=== PATIENT | male | born 1970 | race Caucasian/White ===

== ENCOUNTER 2017-06-20 16:43 | Emergency (ER) | payer OTHER, BC ==
[2017-06-20 16:57] VITALS: BP 153/93; PULSE 60; TEMP 98.1; BMI 26.6
[2017-06-20] MEDS ORDERED: IBUPROFEN 400 MG TABLET (FP) PO ONE ×2 (17:46→18:10)
--- NOTE | 2017-06-20 17:55 | PDOC ---
History of Present Illness - General Chief Complaint: Injury Stated Complaint: INJURY Time Seen by Provider: 06/20/17 17:41 History Source: Patient Exam Limitations: No Limitations - History of Present Illness Initial Comments: 06/20/17 17:44 Primary, while on duty jumped from rag and hyperflexed his right foot and toes. Complaints of pain primarily in the second digit at MTP 06/20/17 17:55 06/20/17 17:56 Occurred: reports: just prior to arrival, this afternoon Severity: reports: mild, moderate Pain Location: reports: lower extremity (right foot) Method of Injury: Yes: fall Modifying Factors: improves with: cold therapy Loss of Consciousness: no loss of consciousness Past History - Travel Traveled outside of the country in the last 30 days: No Close contact w/someone who was outside of country & ill: No - Past Medical History Allergies/Adverse Reactions: Allergies Allergy/AdvReac Type Severity Reaction Status Date / Time No Known Allergies Allergy Verified 06/20/17 16:54 Home Medications: Ambulatory Orders Acetaminophen [Tylenol] 325 mg PO PRN PRN 11/18/15 Ibuprofen [Motrin] 800 mg PO TID #30 tablet 11/18/15 Methocarbamol [Robaxin -] 500 mg PO TID #30 tablet 11/18/15 Other medical history: denies medical hx - Family Disease History Family Disease History: Heart Disease: Father (hypertension) - Immunization History Immunization Up to Date: Yes - Psycho/Social/Smoking Cessation Hx Anxiety: No Suicidal Ideation: No Smoking History: Never smoked Have you smoked in the past 12 months: No Hx Alcohol Use: No Drug/Substance Use Hx: No Substance Use Type: None Trauma Specific PMHX - Complaint Specific PMHX Back Injury: No Neck Injury: No Review of Systems - Review of Systems Able to Perform ROS?: Yes Is the patient limited Yakut proficient: Yes Constitutional: Yes: Symptoms Reported, See HPI, Malaise HEENTM: No: Symptoms Reported Respiratory: No: Symptoms reported Musculoskeletal: Yes: Symptoms Reported, See HPI, Joint Pain, Joint Swelling ( to 2nde MTP) Neurological: Yes: See HPI. No: Symptoms reported *Physical Exam - Vital Signs Last Vital Signs Temp Pulse Resp BP Pulse Ox 98.1 F 60 16 153/93 99 06/20/17 16:54 06/20/17 16:54 06/20/17 16:54 06/20/17 16:54 06/20/17 16:54 - Physical Exam General Appearance: Yes: Nourished, Appropriately Dressed, Apparent Distress HEENT: positive: [place], Normal ENT Inspection, TMs Normal, Pharynx Normal Neck: positive: Supple. negative: Tender Respiratory/Chest: positive: Normal Breath Sounds Musculoskeletal: positive: Normal Inspection Extremity: positive: Normal Capillary Refill, Normal Inspection, Tender (with swelling to 2nd MTP/ ). 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 We will provide Jadon wrap, and follow-up with *DC/Admit/Observation/Transfer Diagnosis at time of Disposition: Right foot sprain Qualifiers: Encounter type: initial encounter Qualified Code(s): S93.601A - Unspecified sprain of right foot, initial encounter - Discharge Dispostion Disposition: HOME Condition at time of disposition: Stable Admit: No - Referrals Referrals: Janet Leija [Primary Care Provider] - Bhanu Sun MD [Staff Physician] - - Patient Instructions Printed Discharge Instructions: DI for Foot Sprain Additional Instructions: Rest, ice to area on and off for 15 minutes 4-6 times a day Avoid heavy lifting or exercise until pain and swelling is resolved or until further directed Keep area highly elevated to reduce swelling Use splints/Jadon wrap as directed Followup with orthopedist in one to 2 days if not improving, if significantly improved may wait one week for followup with orthopedist May use ibuprofen 2-200 mg tablets every 6 hours as needed for pain - Post Discharge Activity Work/School Note: Back to Work
== END 2017-06-20 18:34 | disposition home or self-care (01) ==
LOC: JERFT 16:43 → JER 16:43 → JERFT 18:34
DX: S93.491A Sprain of other ligament of right ankle, initial encounter (principal); V86.91XA Unspecified occupant of ambulance or fire engine injured in nontraffic accident, initial encounter; Y93.39 Activity, other involving climbing, rappelling and jumping off; Y92.89 Other specified places as the place of occurrence of the external cause; Y99.0 Civilian activity done for income or pay
CPT/HCPCS: 73630-TC-RT; 99281-25

== ENCOUNTER 2017-12-04 11:06 | Emergency (ER) | payer OTHER, BC ==
[2017-12-04 11:13] VITALS: BP 146/98; PULSE 64; TEMP 98.2; BMI 26.6
--- NOTE | 2017-12-04 12:49 | PDOC ---
History of Present Illness - General Chief Complaint: Injury Stated Complaint: LOWER BACK PAIN/JOB INJURY Time Seen by Provider: 12/04/17 12:22 History Source: Patient Exam Limitations: No Limitations - History of Present Illness Initial Comments: 12/04/17 12:41 Patient is a 47-year-old male with past medical history of herniated L4-L5 disc who presents to the emergency department today complaining of left buttock pain. 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 He states that he carried it up a couple flights of steps. Afterwards he noticed that he had pain and numbness to his left butt cheek. Denies bladder or bowel incontinence, saddle anesthesia, fall, blunt force trauma, fever and chills. Past History - Travel Traveled outside of the country in the last 30 days: No Close contact w/someone who was outside of country & ill: No - Past Medical History Allergies/Adverse Reactions: Allergies Allergy/AdvReac Type Severity Reaction Status Date / Time No Known Allergies Allergy Verified 12/04/17 11:13 Home Medications: Ambulatory Orders Cyclobenzaprine HCl [Flexeril -] 10 mg PO HS #7 tablet 12/04/17 Methylprednisolone [Medrol Dose Carlos] 4 mg PO ASDIR #21 tablet 12/04/17 COPD: No - Family Disease History Family Disease History: Heart Disease: Father (hypertension) - Immunization History Immunization Up to Date: Yes - Suicide/Smoking/Psychosocial Hx Smoking History: Never smoked Have you smoked in the past 12 months: No Hx Alcohol Use: No Drug/Substance Use Hx: No Substance Use Type: None Review of Systems - Review of Systems Able to Perform ROS?: Yes Comments:: 12/04/17 12:42 CONSTITUTIONAL: Absent: fever, chills, diaphoresis, generalized weakness, malaise, loss of appetite HEENT: Absent: rhinorrhea, nasal congestion, throat pain, throat swelling, difficulty swallowing, mouth swelling, ear pain, eye pain, visual Changes CARDIOVASCULAR: Absent: chest pain, loss of consciousness, palpitations, irregular heart rate, peripheral edema RESPIRATORY: Absent: cough, shortness of breath, dyspnea with exertion, orthopnea, wheezing, stridor, hemoptysis GASTROINTESTINAL: Absent: abdominal pain, abdominal distension, nausea, vomiting, diarrhea, constipation, melena, hematochezia GENITOURINARY: Absent: dysuria, frequency, urgency, hesitancy, hematuria, flank pain, genital pain MUSCULOSKELETAL: Present: L buttock pain. Absent: myalgia, arthralgia, joint swelling SKIN: Absent: rash, itching, pallor HEMATOLOGIC/IMMUNOLOGIC: Absent: easy bleeding, easy bruising, lymphadenopathy, frequent infections ENDOCRINE: Absent: unexplained weight gain, unexplained weight loss, heat intolerance, cold intolerance NEUROLOGIC: Absent: headache, focal weakness or paresthesias, dizziness, unsteady gait, seizure, mental status changes, bladder or bowel incontinence PSYCHIATRIC: Absent: anxiety, depression, suicidal or homicidal ideation, hallucinations. Is the patient limited Vincentian proficient: No *Physical Exam - Vital Signs Last Vital Signs Temp Pulse Resp BP Pulse Ox 98.2 F 64 20 146/98 98 12/04/17 11:10 12/04/17 11:10 12/04/17 11:10 12/04/17 11:10 12/04/17 11:10 - Physical Exam Comments: 12/04/17 12:43 GENERAL: Well developed, well nourished. Awake and alert. No acute distress. HEENT: Normocephalic, atraumatic. PERRLA, EOMI. No conjunctival pallor. Sclera are non- icteric. Moist mucous membranes. Oropharynx is clear. NECK: Supple. Full ROM. No JVD. Carotid pulses 2+ and symmetric, without bruits. No thyromegaly. No lymphadenopathy. CARDIOVASCULAR: Regular rate and rhythm. No murmurs, rubs, or gallops. Distal pulses are 2+ and symmetric. PULMONARY: No evidence of respiratory distress. Lungs clear to auscultation bilaterally. No wheezing, rales or rhonchi. ABDOMINAL: Soft. Non-tender. Non-distended. No rebound or guarding. No organomegaly. Normoactive bowel sounds. MUSCULOSKELETAL Normal range of motion at all joints. No bony deformities. No CVA tenderness. (- ) flip test b/l. TTP of the L buttock, L paraspinous muscle at the level of L 5. No midline vertebral tenderness. EXTREMITIES: No cyanosis. No clubbing. No edema. No calf tenderness. SKIN: Warm and dry. Normal capillary refill. No rashes. No jaundice. NEUROLOGICAL: Alert, awake, appropriate. Cranial nerves 2-12 intact. No deficits to light touch and temperature in face, upper extremities and lower extremities. No motor deficits in the in face, upper extremities and lower extremities. Normoreflexic in the upper and lower extremities. Normal speech. Toes are down- going bilaterally. Gait is normal without ataxia. PSYCHIATRIC: Cooperative. Good eye contact. Appropriate mood and affect. Medical Decision Making - Medical Decision Making 12/04/17 12:44 Patient is a 47-year-old male with past medical history of herniated L4-L5 disc she presents to the emergency department today with an acute flare of sciatica. We will treat with ibuprofen at this time. Patient was given a prescription for a Medrol Dosepak and Flexeril to help with his symptoms. Patient instructed to go on light duty. Patient will follow up with his back doctor this week. Should return precautions were given. Patient understands all discharge instructions and all questions were answered at this time. *DC/Admit/Observation/Transfer Diagnosis at time of Disposition: Sciatica of left side - Discharge Dispostion Disposition: HOME Condition at time of disposition: Good Admit: No - Prescriptions Prescriptions: Cyclobenzaprine HCl [Flexeril -] 10 mg PO HS #7 tablet Methylprednisolone [Medrol Dose Carlos] 4 mg PO ASDIR #21 tablet - Referrals Referrals: Janet Leija [Primary Care Provider] - - Patient Instructions Printed Discharge Instructions: DI for Sciatica Additional Instructions: You have low back pain and sciatica due to a muscle spasm whic. Please take the medrol dose pack as prescribed. You were also prescribed Flexeril. Take the medication before you go to bed. Do not drive after taking this medication as it may make you sleepy. You may use warm compresses on your back to help with her symptoms. Please follow-up with your primary care doctor. If your symptoms do not resolve in 3-5 days, follow-up with orthopedics. A referral has been provided for you. Return to the emergency department if you have worsening back pain, bladder or bowel incontinence, numbness and tingling in your legs, changes in the way you walk, or any new or worsening symptoms. - Post Discharge Activity Forms/Work/School Notes: Back to Work
== END 2017-12-04 12:53 | disposition home or self-care (01) ==
LOC: JERFT 11:06
DX: M54.42 Lumbago with sciatica, left side (principal); X50.0XXA Overexertion from strenuous movement or load, initial encounter; Y93.89 Activity, other specified; Y92.89 Other specified places as the place of occurrence of the external cause; Y99.0 Civilian activity done for income or pay
CPT/HCPCS: 99281-25

== ENCOUNTER 2018-10-07 22:38 | Emergency (ER) | payer OTHER, BC ==
[2018-10-07 22:49] VITALS: BP 158/84; PULSE 91; TEMP 98.1; BMI 26.6
[2018-10-07] MEDS ORDERED: KETOROLAC TROMETHAMINE 60 MG/2 ML VIAL IM ONE (23:27)
--- NOTE | 2018-10-07 23:27 | PDOC ---
History of Present Illness - General History Source: Patient Exam Limitations: No Limitations - History of Present Illness Initial Comments: 10/08/18 00:08 The patient is a 48-year-old male with past medical history significant for L5- L4-S1 herniated disk presents to the emergency department with neck pain. 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 The patient reports he was carrying a ladder when a piece of ceiling fell and hit the patient on his head. The patient reports the incident happened 2 hours ago, initially, he didnt have much pain, but its been gradually worsening. The patient reports the pain is located to the base of the neck, associated with R. shoulder tingling. Denies numbness, LOC, loss of sensation, weakness, fever, chills, chest pain or shortness of breath. Allergies: NKA Social history: None reported PCP: None reported <Laura Rosales - Last Filed: 10/08/18 00:12> <Criselda Narvaez - Last Filed: 10/08/18 22:31> - General Chief Complaint: Pain, Acute Stated Complaint: BACK PAIN Time Seen by Provider: 10/07/18 23:02 Past History <Laura Rosales - Last Filed: 10/08/18 00:12> - Past Medical History COPD: No - Family Disease History Family Disease History: Heart Disease: Father (hypertension) - Immunization History Immunization Up to Date: Yes - Suicide/Smoking/Psychosocial Hx Smoking History: Never smoked Have you smoked in the past 12 months: No Hx Alcohol Use: No Drug/Substance Use Hx: No Substance Use Type: None <Criselda Narvaez - Last Filed: 10/08/18 22:31> - Past Medical History Allergies/Adverse Reactions: Allergies Allergy/AdvReac Type Severity Reaction Status Date / Time No Known Allergies Allergy Verified 10/07/18 22:47 Home Medications: Ambulatory Orders Cyclobenzaprine HCl [Flexeril -] 10 mg PO HS #7 tablet 12/04/17 Methylprednisolone [Medrol Dose Carlos] 4 mg PO ASDIR #21 tablet 12/04/17 Ibuprofen [Motrin -] 600 mg PO TID #30 tablet 10/07/18 Methocarbamol [Robaxin -] 500 mg PO TID #21 tablet 10/07/18 Review of Systems - Review of Systems Able to Perform ROS?: Yes Comments:: 10/08/18 00:08 GENERAL/CONSTITUTIONAL: No fever or chills. No weakness. HEAD, EYES, EARS, NOSE AND THROAT: No change in vision. No ear pain or discharge. No sore throat. GASTROINTESTINAL: No nausea, vomiting, diarrhea or constipation. GENITOURINARY: No dysuria, frequency, or change in urination. CARDIOVASCULAR: No chest pain or shortness of breath. RESPIRATORY: No cough, wheezing, or hemoptysis. MUSCULOSKELETAL: +neck pain. No joint or muscle swelling or pain. No back pain. SKIN: No rash NEUROLOGIC: No headache, vertigo, loss of consciousness, or change in strength/ sensation. ENDOCRINE: No increased thirst. No abnormal weight change. HEMATOLOGIC/LYMPHATIC: No anemia, easy bleeding, or history of blood clots. ALLERGIC/IMMUNOLOGIC: No hives or skin allergy. <Laura Rosales - Last Filed: 10/08/18 00:12> *Physical Exam - Vital Signs Last Vital Signs Temp Pulse Resp BP Pulse Ox 98.1 F 91 H 18 158/84 98 10/07/18 22:47 10/07/18 22:47 10/07/18 22:47 10/07/18 22:47 10/07/18 22:47 - Physical Exam Comments: 10/08/18 00:09 GENERAL: Awake, alert, and fully oriented, in no acute distress HEAD: No signs of trauma EYES: PERRLA, EOMI, sclera anicteric, conjunctiva clear ENT: Auricles normal inspection, hearing grossly normal, nares patent, oropharynx clear without exudates. Moist mucosa NECK: Normal ROM, supple, no lymphadenopathy, JVD, or masses LUNGS: Breath sounds equal, clear to auscultation bilaterally. No wheezes, and no crackles HEART: Regular rate and rhythm, normal S1 and S2, no murmurs, rubs or gallops ABDOMEN: Soft, nontender. No guarding, no rebound. No masses EXTREMITIES: Normal range of motion, no edema. No clubbing or cyanosis. No cords , erythema, or tenderness BACK: Moving all extremity, pain in the right scapula, no muscle spasm on the trapezium, no tenderness to the cervical spine, R. paraspinal tenderness at C6- C7. NEUROLOGICAL: Normal speech, cranial nerves intact, normal gait, normal reflexes and tone SKIN: Warm, Dry, normal turgor, no rashes or lesions noted. <Laura Rosales - Last Filed: 10/08/18 00:12> - Vital Signs Last Vital Signs Temp Pulse Resp BP Pulse Ox 98.1 F 91 H 18 158/84 98 10/07/18 22:47 10/07/18 22:47 10/07/18 22:47 10/07/18 22:47 10/07/18 22:47 <Criselda Narvaez - Last Filed: 10/08/18 22:31> ED Treatment Course - Medications Given in the ED: ED Medications Discontinued Medications Generic Name Dose Route Start Last Admin Trade Name Alexis PRN Reason Stop Dose Admin Ketorolac Tromethamine 60 mg 10/07/18 23:27 10/07/18 23:41 Toradol Injection - IM 10/07/18 23:28 60 mg ONCE ONE Administration Methocarbamol 1,000 mg 10/07/18 23:28 10/07/18 23:41 Robaxin - PO 10/07/18 23:29 1,000 mg ONCE ONE Administration <Laura Rosales - Last Filed: 10/08/18 00:12> Medical Decision Making - Medical Decision Making 10/08/18 22:31 Pt's C spine is normal. He will be discharged home with meds/muscle relaxants and analgesics. <Criselda Narvaez - Last Filed: 10/08/18 22:31> *DC/Admit/Observation/Transfer - Attestations Scribe Attestion: 10/08/18 00:11 Documentation prepared by Laura Rosales, acting as medical interpreter for Criselda Narvaez MD. <Laura Rosales - Last Filed: 10/08/18 00:12> - Discharge Dispostion Decision to Admit order: No <Criselda Narvaez - Last Filed: 10/08/18 22:31> Diagnosis at time of Disposition: Muscle spasms of neck - Discharge Dispostion Disposition: HOME Condition at time of disposition: Stable - Prescriptions Prescriptions: Ibuprofen [Motrin -] 600 mg PO TID #30 tablet Methocarbamol [Robaxin -] 500 mg PO TID #21 tablet - Patient Instructions Printed Discharge Instructions: DI for Neck Pain - Post Discharge Activity Forms/Work/School Notes: Back to Work
[2018-10-07] MEDS ORDERED: METHOCARBAMOL 500 MG TABLET PO ONE (23:28)
[2018-10-07] MEDS ORDERED: KETOROLAC TROMETHAMINE 60 MG/2 ML VIAL ONE (23:35)
[2018-10-07] MEDS ORDERED: METHOCARBAMOL 500 MG TABLET ONE (23:35)
== END 2018-10-08 00:34 | disposition home or self-care (01) ==
LOC: JER 22:38
PROC: 3E0233Z Introduction of Anti-inflammatory into Muscle, Percutaneous Approach (ICD-10-PCS; principal; 2018-10-07)
DX: S19.80XA Other specified injuries of unspecified part of neck, initial encounter (principal); M62.838 Other muscle spasm; X02.4XXA Hit by object from burning building or structure in controlled fire, initial encounter; Y93.89 Activity, other specified; Y92.89 Other specified places as the place of occurrence of the external cause; Y99.0 Civilian activity done for income or pay
CPT/HCPCS: 72050-TC-FY; 99282-25